=== PATIENT | female | born 1965 | race Caucasian/White ===

== ENCOUNTER 2023-07-18 08:10 | Emergency (ER) | payer OTHER ==
[~2023-07-18] VITALS: Ht 165.1 cm; Wt 76.2 kg
[2023-07-18] MEDS ORDERED: METOCLOPRAMIDE HCL 10 MG TABLET ONE (08:39)
[2023-07-18 08:54] VITALS: BP 136/76; TEMP 98; O2SAT 100
[2023-07-18] MEDS ORDERED: METOCLOPRAMIDE HCL 10 MG TABLET PO ONE (09:00)
== END 2023-07-18 08:55 | disposition home or self-care (01) ==
LOC: ER 08:44
DX: R51.9 Headache, unspecified (principal)
CPT/HCPCS: 99283; J8597

== ENCOUNTER 2023-07-21 18:04 | Emergency (ER) | payer OTHER ==
[~2023-07-21] VITALS: Ht 165.1 cm; Wt 77.1 kg
[2023-07-21] MEDS ORDERED: LORAZEPAM INJ 2 MG/ML VIAL IV ONE (21:00)
[2023-07-21] MEDS ORDERED: LORAZEPAM INJ 2 MG/ML VIAL ONE (21:01)
[2023-07-21 21:16] LABS: CALCIUM, SERUM 9.5 mg/dL (8.5-10.1); CREATININE 0.7 mg/dL (0.6-1.3); POTASSIUM 3.8 mmol/L (3.5-5.1)
[2023-07-21 21:23] LABS: BASOPHILS % (AUTO) 0.4 % (0.0-2.0); EOSINOPHILS # (AUTO) 0.1 K/uL (0.0-0.7); HEMATOCRIT 38 % (33-45); LYMPHOCYTES # (AUTO) 1.9 K/uL (0.8-4.8); LYMPHOCYTES % (AUTO) 38.6 % (20.0-44.0); MEAN CORPUSCULAR HEMOGLOBIN 30 PG (26.0-33.0); MEAN CORPUSCULAR HGB CONC 34 g/dl (31.0-36.0); MEAN CORPUSCULAR VOLUME 89 fL (82-100); MONOCYTES # (AUTO) 0.4 K/uL (0.1-1.30); MONOCYTES % (AUTO) 7.2 % (2.0-12.0); NEUTROPHILS # (AUTO) 2.6 K/uL (1.8-8.9); NEUTROPHILS % (AUTO) 51.8 % (43.0-81.0); PLATELET COUNT (AUTO) 232 K/uL (150-450); RED BLOOD CELL COUNT(AUTO) 4.29 MIL/uL (4.0-5.2); RED CELL DISTRIBUTION WIDTH 12.5 % (11.5-15.0)
[2023-07-21 22:42] VITALS: BP 135/87; TEMP 98.1; O2SAT 99
== END 2023-07-21 22:43 | disposition home or self-care (01) ==
LOC: ER 18:04
DX: G44.89 Other headache syndrome (principal); Z88.1 Allergy status to other antibiotic agents
CPT/HCPCS: 99285; 96374; 70450; 85025; 80048; 36415; J2060

== ENCOUNTER 2024-10-15 22:20 | Emergency (ER) | payer OTHER ==
[~2024-10-15] VITALS: Ht 167.6 cm; Wt 77.1 kg
[2024-10-15 22:41] VITALS: TEMP 97.9
[2024-10-15] MEDS ORDERED: METOCLOPRAMIDE HCL 10 MG/2 ML VIAL ONE (22:59)
[2024-10-15] MEDS ORDERED: LORAZEPAM INJ 2 MG/ML VIAL ONE (22:59)
[2024-10-15] MEDS: IV NS 0.9% 1,000 ML BAG IV ONE (23:10)
[2024-10-15] MEDS: LORAZEPAM INJ 2 MG/ML VIAL IV ONE (23:10)
[2024-10-15] MEDS: METOCLOPRAMIDE HCL 10 MG/2 ML VIAL IV ONE (23:11)
[2024-10-16] MEDS ORDERED: LORA-259 PO (00:08)
[2024-10-16] MEDS ORDERED: METO-295 PO (00:08)
[2024-10-16 00:15] VITALS: BP 128/80; O2SAT 99
== END 2024-10-16 00:29 | disposition home or self-care (01) ==
LOC: ER 22:22
DX: G43.909 Migraine, unspecified, not intractable, without status migrainosus (principal)
CPT/HCPCS: 99284; 96374; 96375; J2060; J2765; J7030